=== PATIENT | male | born 1975 | race Caucasian/White ===

== ENCOUNTER 2019-01-16 23:14 | Inpatient (IN) ==
[2019-01-17 00:08] LABS: INR 0.94; PTT 31.2 Seconds (22.3-41.8)
[2019-01-17 00:15] LABS: AGAP 14; ALBUMIN 4.1 g/dL (3.5-5.0); ALKALINE PHOSPHATASE 200 U/L (32-122); BUN 7 mg/dL (8-22); CALCIUM 7.8 mg/dL (8.8-10.2); CHLORIDE 91 mmol/L (98-107); COSMO 261; CREATININE 0.8 mg/dL (0.7-1.2); ESTIMATED GFR > 60; GLUCOSE 130 mg/dL (70-104); GOT 167 U/L (10-34); GPT 55 U/L (10-44); POTASSIUM 3.6 mmol/L (3.5-5.1); SODIUM 130 mmol/L (136-145); TCO2 25 mmol/L (25-35); TOTAL PROTEIN 7.7 g/dL (6.3-8.3)
[2019-01-17 00:23] LABS: BASO# 0.09 X1000 (0.0-0.2); EOS% 2.3 % (0.0-10.0); HEMATOCRIT 41.3 % (42.0-52.0); HEMOGLOBIN 14.3 g/dL (14.0-18.0); IMM GRAN# 0.02 X1000 (0.0-0.04); IMM GRAN% 0.2 % (0.0-0.5); LYMPH# 1.33 X1000 (1.2-3.4); LYMPH% 15.1 % (20.5-51.1); MCH 31.6 PG (27-31); MCHC 34.6 g/dL (33-37); MCV 91.4 FL (81-99); MONO# 0.89 X1000 (0.11-0.59); MONO% 10.1 % (1.7-9.3); NEUT# 6.26 X1000 (1.4-6.5); NEUT% 71.3 % (42.2-75.2); PLT 43 X1000 (130-400); RBC 4.52 XMIL (4.7-6.1); WBC 8.79 X1000 (4.8-10.8)
[2019-01-17] MEDS ORDERED: SODIUM CHLORIDE 0.9% INJ ONE (01:02)
[2019-01-17] MEDS ORDERED: PROTONIX IV ONE (01:02)
[2019-01-17] MEDS ORDERED: NS 1,000 ML IV SCH (01:15)
[2019-01-17 02:26] LABS: UR AMPHETAMINES QUAL NONE DETECTED (NONE DETECT); UR BARBITUATES QUAL NONE DETECTED (NONE DETECT); UR BENZODIAZEPIN QUAL NONE DETECTED (NONE DETECT); UR CANNABINOIDS QUAL NONE DETECTED (NONE DETECT); UR COCAINE QUAL NONE DETECTED (NONE DETECT); UR METHADONE QUAL NONE DETECTED (NONE DETECT); UR METHAMPHETAMINE QUAL NONE DETECTED (NONE DETECT); UR OPIATES QUAL NONE DETECTED (NONE DETECT); UR OXYCODONE QUAL NONE DETECTED (NONE DETECT); UR PCP QUAL NONE DETECTED (NONE DETECT); UR PROPOXYPHENE QUAL NONE DETECTED (NONE DETECT); UR TCA QUAL NONE DETECTED (NONE DETECT)
[2019-01-17 03:44] LABS: OCCULT BLOOD 1 POSITIVE (NEGATIVE)
[2019-01-17] MEDS: LIBRIUM PO ONE ×2 (05:52→05:55)
[2019-01-17] MEDS ORDERED: ROBAXIN PO PRN (07:01)
[2019-01-17] MEDS ORDERED: BENTYL PO PRN (07:01)
[2019-01-17] MEDS ORDERED: SALINE LOCK IV FLUID XX ONE (07:01)
[2019-01-17 07:03] LABS: BASO# 0.03 X1000 (0.0-0.2); BASO% 0.6 % (0.0-0.8); EOS# 0.17 X1000 (0.0-0.7); EOS% 3.5 % (0.0-10.0); HEMATOCRIT 37.9 % (42.0-52.0); HEMOGLOBIN 12.7 g/dL (14.0-18.0); IMM GRAN# 0.01 X1000 (0.0-0.04); IMM GRAN% 0.2 % (0.0-0.5); LYMPH# 1.16 X1000 (1.2-3.4); LYMPH% 23.6 % (20.5-51.1); MCH 30.9 PG (27-31); MCHC 33.5 g/dL (33-37); MCV 92.2 FL (81-99); MONO# 0.46 X1000 (0.11-0.59); MONO% 9.4 % (1.7-9.3); MPV 11.1 FL (7.4-10.4); NEUT# 3.08 X1000 (1.4-6.5); NEUT% 62.7 % (42.2-75.2); RBC 4.11 XMIL (4.7-6.1); RDW 12.8 % (11.5-14.5); WBC 4.91 X1000 (4.8-10.8)
[2019-01-17 07:34] LABS: AGAP 13; ALBUMIN 3.5 g/dL (3.5-5.0); ALKALINE PHOSPHATASE 167 U/L (32-122); BUN 6 mg/dL (8-22); CALCIUM 7.4 mg/dL (8.8-10.2); CHLORIDE 102 mmol/L (98-107); COSMO 275; CREATININE 0.7 mg/dL (0.7-1.2); ESTIMATED GFR > 60; GLUCOSE 90 mg/dL (70-104); GOT 136 U/L (10-34); GPT 46 U/L (10-44); SODIUM 139 mmol/L (136-145); TCO2 24 mmol/L (25-35); TOTAL PROTEIN 6.6 g/dL (6.3-8.3)
[2019-01-17] MEDS ORDERED: PROTONIX 80 MG in NS 80 ML IV SCH (08:00)
[2019-01-17] MEDS ORDERED: LIBRIUM PO SCH (08:00)
[2019-01-17 08:14] LABS: PLT 32 X1000 (130-400)
[2019-01-17] MEDS ORDERED: M.V.I.-12 10 ML, FOLIC ACID 1 MG, MAGNESIUM SULFATE 1 GM, THIAMINE 100 MG in NS 1,000 ML IV ONE (09:00)
[2019-01-17 11:32] LABS: HEMATOCRIT 37.1 % (42.0-52.0); HEMOGLOBIN 12.2 g/dL (14.0-18.0)
--- NOTE | 2019-01-17 11:50 | Diag Imaging Result Doc PS360 ---
EXAM: FLAT/UPRIGHT ABD/1 VIEW CHEST HISTORY: gib, smoker, thrombocytopenia TECHNIQUE: Flat and upright with chest, three views COMPARISON: 09/08/2017 FINDINGS: The lungs are well expanded. No cardiac megaly. No pneumonia. There is a new oblong nodule in the mid right chest. No free air beneath the diaphragm. No bowel obstruction. No organomegaly. No foreign body. IMPRESSION: Lung nodule in the right chest. Follow-up CT may be beneficial. Electronically signed by Kiran Rose 01/17/2019 11:47 AM
[2019-01-17 12:10] LABS: FREE T4 1.14 ng/dL (0.93-1.70); TSH 1.48 uIUmL (0.27-4.20)
[2019-01-17] MEDS: LIBRIUM PO SCH ×2 (15:41→17:14)
[2019-01-17 16:33] LABS: HEMATOCRIT 36.5 % (42.0-52.0); HEMOGLOBIN 11.9 g/dL (14.0-18.0)
[2019-01-17] MEDS: ROCEPHIN 1 GM in NS 50 ML IV SCH (17:05)
--- NOTE | 2019-01-17 18:24 | Diag Imaging Result Doc PS360 ---
US ABDOMEN-COMPLETE - 01/17/2019 INDICATION: cirrhosis r/o hepatoma, assess ascites COMPARISON: 09/06/2017 FINDINGS: The liver is mildly fatty. No liver masses. No biliary dilation. There is mild nonspecific gallbladder wall thickening. No gallstones. There is splenomegaly. The spleen measures 13.8 x 5.2 cm. The pancreas and both kidneys are normal. Aorta, IVC, and main portal vein are patent. Common bile duct measures 3 mm. No ascites. IMPRESSION: Hepatic steatosis. Mild splenomegaly. No change from prior exams. Electronically signed by Adam Snow 01/17/2019 6:22 PM
--- NOTE | 2019-01-17 20:28 | GASTROENTEROLOGY CONSULTATION ---
DATE: 01/17/2019 REASON FOR CONSULTATION: Hematemesis and black stools. HISTORY OF PRESENT ILLNESS: Mr. 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 The patient reports drinking heavily last evening and developing vomiting with a small amount of bright red blood in his emesis. He cannot recall the complete details of his vomiting episode given acute intoxication, although he denies any chest pain, shortness of breath, gross clots in his emesis, abdominal pain, or fevers. He is not on any NSAIDs or blood thinners. He denies any history of similar symptoms in the past. He does endorse abdominal fullness and admits to being noncompliant with lactulose and diuretics. He continues to drink heavily, drinking anywhere between 12 to 20 beers per day. He smokes 1 pack per day as well. No other drug use other than alcohol. He has not ever had an EGD or colonoscopy per his report. He is followed by Dr. Arnett as an outpatient. PAST MEDICAL HISTORY: Decompensated alcohol cirrhosis, ascites, hepatic encephalopathy, thrombocytopenia, prior hospitalizations for alcoholic hepatitis. PAST SURGICAL HISTORY: None. FAMILY HISTORY: Father from complications from alcohol. His uncle also has a history of alcohol cirrhosis. ALLERGIES: To Benadryl. HOME MEDICATIONS: The patient is noncompliant with home medications, not currently taking anything. REVIEW OF SYSTEMS: As per HPI, otherwise 12-point review of systems negative. SOCIAL HISTORY: He drinks anywhere between 12 to 20 beers per day 1 pack per day smoker. No drug use. He lives with a friend currently. PHYSICAL EXAMINATION: Vital signs: Temperature 98.3 degrees, heart rate 72, respiratory rate 18, blood pressure 120/74, O2 saturation 97% on room air. General: The patient is disheveled, well- nourished, well-developed in no acute distress. HEENT: Sclerae anicteric. Moist mucous membranes. Extraocular motor intact. Neck: Supple. No JVD. No lymphadenopathy. Cardiac: Regular rate and rhythm. No murmurs, rubs, or gallops. Lungs: Clear to auscultation bilaterally. Abdomen: Distended, soft. Bowel sounds present. Bulging flanks. Ascites present. Nontender. Extremities: No clubbing, cyanosis, or edema. Neurological: Cranial nerves 2 through 12 grossly intact, moving all extremities symmetrically. Patient is A and O x3. No asterixis. LABORATORY DATA: White count of 4.91, hemoglobin is 12.2 from 14.3 last evening. Platelets are 32,000. INR 0.94. Sodium 139, potassium 4.0, chloride of 102, bicarb 24, BUN 13, BUN of 6, creatinine 0.7, phosphorus of 2.6, total bilirubin 0.6, AST of 136, ALT of 46, alkaline phosphatase 167. B12, folate unremarkable. TSH within normal limits. Urine tox is negative. FOBT is positive. Alcohol level 48. IMAGING: KUB shows a lung nodule in the right chest. Followup CT was recommended. 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 The patient reports having intermittent black stools for the last week. His hemoglobin currently is 12.2 from 14.3 after receiving IV fluids. He denies ongoing bleeding. His vital signs currently are stable. This is unlikely variceal bleed given his hemodynamic stability and essentially normal hemoglobin. He does have significant thrombocytopenia with normal coags from splenomegaly in the setting of cirrhosis. # UGIB: The plan is currently for him to stay on a clear liquid diet for now, keep him on PPI IV b.i.d. He should be on antibiotics for gastrointestinal prophylaxis in the setting of GI bleeding. We will put him on ceftriaxone 1 g q.24. Currently I do not see urgent need to do a diagnostic EGD at this time. # Alcohol abuse: [facility] protocol, thiamin, folate, multivitamin, IV fluids, alcohol cessation counseling. We will continue to monitor for withdrawal # Decompensated ETOH cirrhosis: - Ascites: abdominal ultrasound to assess for ascites if present, diagnostic paracentesis. symptoms. We will likely need to restart him on diuretics based off ultrasound findings. His renal function currently is normal. He is stable on room air. # History of PSE: none currently; holding lactulose # Thrombocytopenia: 2/2 to cirrhosis Thank you for this consult. We will follow with you. Please call with any questions or concerns. [facility]
[2019-01-17 22:53] LABS: HEMATOCRIT 36.5 % (42.0-52.0); HEMOGLOBIN 11.8 g/dL (14.0-18.0)
[2019-01-18] MEDS: PROTONIX 80 MG in NS 80 ML IV SCH ×3 (00:01→15:59)
[2019-01-18] MEDS: LIBRIUM PO SCH ×4 (01:27→18:57)
--- NOTE | 2019-01-18 01:48 | PROVIDER DOCUMENTATION ---
This chart was entered by Chanda Gomes Scribe, acting as scribe for Janell Jules MD. HPI-Abdominal Pain/GI Problem - General Chief Complaint: GI Bleed Stated Complaint: Vomiting blood/ dark stool Time Seen by Provider: 01/17/19 00:57 Source: patient, EMS Allergies/Adverse Reactions: Patient Allergies Allergy/AdvReac Type Severity Reaction Status Date / Time diphenhydramine HCl * Allergy Unknown Unknown Verified 01/16/19 23:22 [From Benadryl] Home Medications: Home Medication List Medication Instructions Recorded Confirmed Last Taken Type NK [No Home Medications] 01/17/19 01/17/19 Unknown History - History of Present Illness-ABD Nature of Presenting Problems: Pt is 43/m presenting to ED via EMS. Pt sts that he was not feeling well and that he was vomiting blood at home. He also reports having dark stools, sometimes black in color. Pt has hx of alcoholism, sts that he has drank 8 beers [employer] Abdominal Pain Onset Location: reports: other (states no pain right now, but that pain is intermittent) Pain Radiation: reports: no radiation Quality of Pain: reports: none Severity in ED: reports: mild Onset/Duration: reports: just prior to arrival Timing: reports: still present Activities at Onset: reports: none Exposure to sick contacts?: No Modifying Factors: improves with: nothing Associated Symptoms: reports: denies symptoms, nausea, vomiting Last BM: unsure Dark Stools Present?: reports: other (sts "dark") Rectal Bleeding: reports: none # of Vomiting Episodes: 2 Emesis Description: reports: other (sts that roomates said that their was blood, but he did not look at it) Bruising or Bleeding Gums?: No Similar Symptoms Previously?: No Recently seen or treated by another doctor?: No Review of Systems - Adult - REVIEW OF SYSTEMS - ADULT Constitutional: reports: no symptoms reported Eyes: reports: no symptoms reported Ears, Nose, Mouth & Throat: reports: no symptoms reported Cardiovascular: reports: no symptoms reported Respiratory: reports: no symptoms reported Gastrointestinal: reports: abdominal pain, nausea, vomiting. denies: diarrhea Musculoskeletal: reports: no symptoms reported Integumentary: reports: no symptoms reported Neurological: reports: no symptoms reported. denies: dizziness/vertigo, headache/migraines Psychiatric: reports: no symptoms reported Endocrine: reports: no symptoms reported Hematologic/Lymphatic: reports: no symptoms reported Past History - Adult - PAST MEDICAL HISTORY-ADULT Review of Records: reports: Old Records Reviewed, Nursing Assessment Review, Med ications Reviewed, Social history reviewed & non-contributory. Major Childhood Illnesses: reports: denies history Cardiovascular: reports: denies history Respiratory: reports: denies history Gastrointestinal: reports: liver disease (cirrhosis) Obstetrical/Gynecological: reports: denies history Genitourinary: reports: denies history Musculoskeletal: reports: denies history Neurological: reports: denies history Psychiatric: reports: anxiety, psychiatric problems, other (disabled due to anxiety) Endocrine/Immune: reports: denies history Other Conditions: reports: denies history - PRIOR SURGERIES/PROCEDURES Surgical/Procedure History: reports: none - IMMUNIZATION STATUS Childhood Immunizations: See Nurse Assessment Flu Vaccine: See Nurse Assessment - FAMILY HISTORY Family History: reviewed, not pertinent - SOCIAL HISTORY Smoking: cigarettes, greater than 1 pack/day Substance Use: alcohol Alcohol Use Frequency: every day Number of drinks per typical drinking period:: 5-10 drinks Living Situation: other Physical Exam-General - PHYSICAL EXAM-ADULT Initial Vital Signs Reviewed: Yes - CONSTITUTIONAL General Appearance: alert, no apparent distress - EYES Eyes: PERRL/EOMI - HEAD, EARS, NOSE, MOUTH & THROAT HENMT: normocephalic/atraumatic, other (SLIGHTLY DRY MUCOUS MEMBRANE) - NECK Neck: non-tender, full range of motion, supple, normal inspection - RESPIRATORY Respiratory: chest non-tender, lungs clear, normal breath sounds - CARDIOVASCULAR Cardiovascular: regular rate, rhythm - GASTROINTESTINAL (ABDOMEN) Abdominal Exam: normal bowel sounds, non tender, soft - GENITOURINARY Rectal Exam: normal exam, normal rectal tone, other ([employer] Chanda Gomes) - MUSCULOSKELETAL Extremity: normal range of motion, non-tender, normal gait, normal inspection - SKIN Integumentary: normal color, warm/dry - NEUROLOGIC Neurologic: grossly normal Progress - PLAN OF CARE/RESULTS Progress/Plan/Lab Results: Vital Signs - 8 hr 01/16/19 23:14 01/16/19 23:56 Temperature 98.3 F Pulse Rate 90 87 Respiratory Rate 17 14 Blood Pressure 127/92 128/85 O2 Sat by Pulse Oximetry 98 95 Laboratory Results - last 24 hr 01/16/19 01/16/19 01/16/19 23:10 23:10 23:10 WBC 8.79 RBC 4.52 L Hgb 14.3 Hct 41.3 L MCV 91.4 MCH 31.6 H MCHC 34.6 RDW Std Deviation 13.0 Plt Count 43 L MPV 11.0 H Immature Gran % (Auto) 0.2 Neut % (Auto) 71.3 Lymph % (Auto) 15.1 L Boundary % (Auto) 10.1 H Eos % (Auto) 2.3 Baso % (Auto) 1.0 H Immature Gran # (Auto) 0.02 Neut # (Auto) 6.26 Lymph # (Auto) 1.33 Boundary # (Auto) 0.89 H Eos # (Auto) 0.20 Baso # (Auto) 0.09 PT 13.0 INR 0.94 PTT (Actin FS) 31.2 Sodium 130 L Potassium 3.6 Chloride 91 L Carbon Dioxide 25 Anion Gap 14 BUN 7 L Creatinine 0.8 Estimated GFR/1.73 m2 > 60 BUN/Creatinine Ratio 9 Glucose 130 H Calculated Osmolality 261 Calcium 7.8 L Total Bilirubin 0.50 AST 167 H ALT 55 H Alkaline Phosphatase 200 H Total Protein 7.7 Albumin 4.1 Globulin 4.0 Albumin/Globulin Ratio 1.0 Plasma/Serum Ethyl Alc Blood Type Antibody Screen 01/16/19 01/16/19 23:10 23:35 WBC RBC Hgb Hct MCV MCH MCHC RDW Std Deviation Plt Count MPV Immature Gran % (Auto) Neut % (Auto) Lymph % (Auto) Boundary % (Auto) Eos % (Auto) Baso % (Auto) Immature Gran # (Auto) Neut # (Auto) Lymph # (Auto) Boundary # (Auto) Eos # (Auto) Baso # (Auto) PT INR PTT (Actin FS) Sodium Potassium Chloride Carbon Dioxide Anion Gap BUN Creatinine Estimated GFR/1.73 m2 BUN/Creatinine Ratio Glucose Calculated Osmolality Calcium Total Bilirubin AST ALT Alkaline Phosphatase Total Protein Albumin Globulin Albumin/Globulin Ratio Plasma/Serum Ethyl Alc 381 H Blood Type O POSITIVE Antibody Screen NEGATIVE Orders Category Date Time Status Cardiac Monitoring DIRECTED Care 01/17/19 01:02 Active ALCOHOL BLOOD Stat Lab 01/16/19 23:10 Completed CBC WITH ELECTRONIC DIFF [HEME] Stat Lab 01/16/19 23:10 Completed COMPREHENSIVE METABOLIC PANEL [CHEM] Stat Lab 01/16/19 23:10 Completed OCCULT BLOOD SCREEN STOOL PL Stat Lab 01/16/19 23:24 Uncollected PROTIME WITH INR [COAG] Stat Lab 01/16/19 23:10 Completed PTT [COAG] Stat Lab 01/16/19 23:10 Completed TYPE & SCREEN [BBK] Stat Lab 01/16/19 23:35 Completed TYPE & SCREEN [BBK] Stat Lab 01/17/19 01:02 Uncollected 0.9% Sodium Chloride Inj [Ns] 1,000 ml Med 01/17/19 01:15 Active IV 250 mls/hr Pantoprazole [Protonix] Med 01/17/19 01:02 Discontinued 40 mg IV NOW ONE Sodium Chloride 0.9% Med 01/17/19 01:02 Discontinued 10 ml INJ NOW ONE GI Bleed (possible) Stat Oth 01/16/19 23:23 Ordered Result Diagrams: 01/17/19 11:15 01/17/19 06:11 - CONSULTS/PCP/HOSPITALIST Notification #1 *Consult/PCP/Hospitalist*: Dr. Phyllis Esqueda Discussed: 01:45 Consult Disposition: other (try to admit to [facility], if no bed admit to [facility].) #2 Consult: Dr. Salomon Esqueda Discussed: 01:55 Consult Disposition: other (initially accept the patient but we got call from [facility] that they don't have [facility] bed and he can't accept the patient. will call Dr. Ferguson) #3 Consult: Dr. Phyllis Esqueda Discussed: 02:10 Consult Disposition: Admit (Accepted.) Departure - Departure Date of Disposition Decision: 01/17/19 Time of Disposition Decision: 02:10 DIAGNOSIS: Upper GI bleed, Thrombocytopenia Alcohol intoxication Qualifiers: Complication of substance-induced condition: uncomplicated Qualified Code(s): F10.920 - Alcohol use, unspecified with intoxication, uncomplicated Liver cirrhosis Qualifiers: Hepatic cirrhosis type: alcoholic cirrhosis Ascites presence: without ascites Qualified Code(s): K70.30 - Alcoholic cirrhosis of liver without ascites Disposition: ADMITTED INPATIENT 09 Certified Medical Emergency: Emergent Condition: Stable - Critical Care Note This patient required my direct & personal management of CC.: No Attestation - Physician/ ZAHIDA Attestation Patient care was provided by Advanced Practice Provider:: No The physician spent face to face time with patient:: Yes Advanced Practice Provider documentation review:: Supervising physician onsite and consulted in the evaluation and care of this patient. The physician did have a face to face encounter with the patient. This chart was documented by the indicated scribe, (Chanda Gomes, Sne[place]) and accurately reflects the services I performed and decisions made by me, Janell Bowman MD, as attested by the provider's signature.
--- NOTE | 2019-01-18 01:58 | HISTORY AND PHYSICAL ---
CHIEF COMPLAINT: Vomiting blood and dark stool. HISTORY OF PRESENT ILLNESS: The patient is an unfortunate 43-year-old male who has a history of alcoholic cirrhosis. He presented to the hospital not feeling well. States that he has been vomiting at home. Reports having dark stools and sometimes black in color. Denies any bright red rectal bleeding. ALLERGIES: Benadryl. MEDICATIONS: Lasix 40, spironolactone 25. He had been on Xifaxan in the back in the past, but he is not currently taking this. REVIEW OF SYSTEMS: As noted above. Patient notes that he has had some nausea, vomiting, diarrhea. He has had black and dark, tarry stools. Feels as though he has had some blood in his emesis, but not every time. Denies any chest pain, palpitations. Denies fevers or chills. Denies dysuria, urinary frequency, urgency, hesitancy, polyuria or polydipsia. Denies skin rashes, weight loss or weight gain recently, but also notes he does not check his weight on any regular basis. PAST MEDICAL HISTORY: History of cirrhosis secondary to chronic alcoholism. Psychiatric problems. He is on disability due to his anxiety. FAMILY HISTORY: Noncontributory. SOCIAL HISTORY: The patient continues to smoke a pack a day. He continues to drink every day at least 5 to 10 drinks. PHYSICAL EXAMINATION: VITAL SIGNS: Temperature 98 degrees, pulse 90, respiratory rate 18, BP 127/92, saturation 95% on room air. GENERAL: Patient is awake, alert. He is currently in no respiratory distress. He is very pleasant to talk with. HEENT: Normocephalic. NECK: Supple. CARDIOVASCULAR: Regular rate. No murmurs. CHEST: Clear and nonlabored. Nondistended. EXTREMITIES: Moves all extremities. NEUROLOGIC: No focal neurological changes. ASSESSMENT: 1. Cirrhosis. 2. Chronic alcoholism. 3. Thrombocytopenia. 4. Heme-positive stool. PLAN: Given the fact the patient has heme-positive stool and significant thrombocytopenia with a platelet count of 30,000, we will transfer him to [facility]. We will consult GI. Certainly we will hold endoscopy at this point as his hemoglobin and hematocrit are stable, but he needs to be there in case things change so that he can be treated more aggressively. If his bleeding increases, then he will need to have a transfusion of platelets. Discussed with patient the importance of stopping alcohol. Should consider medication assisted therapy, MAT, on discharge with naltrexone. Currently, he is on Librium at 25 three times a day. Certainly expect that he will need more than this, but he is refusing to take any more. We will place him on a Protonix drip and follow. cc: Matt Ferguson MD
[2019-01-18 06:50] LABS: BASO# 0.05 X1000 (0.0-0.2); BASO% 1.3 % (0.0-0.8); EOS# 0.16 X1000 (0.0-0.7); EOS% 4.3 % (0.0-10.0); HEMATOCRIT 36.2 % (42.0-52.0); HEMOGLOBIN 11.7 g/dL (14.0-18.0); LYMPH# 0.89 X1000 (1.2-3.4); MCH 31.1 PG (27-31); MCHC 32.3 g/dL (33-37); MCV 96.3 FL (81-99); MONO# 0.42 X1000 (0.11-0.59); MONO% 11.3 % (1.7-9.3); NEUT# 2.19 X1000 (1.4-6.5); NEUT% 59.1 % (42.2-75.2); RBC 3.76 XMIL (4.7-6.1); RDW 13.3 % (11.5-14.5); WBC 3.71 X1000 (4.8-10.8)
[2019-01-18 06:51] LABS: PLT 29 X1000 (130-400)
[2019-01-18 07:03] LABS: AGAP 9; ALB/GLOB RATIO 1.2; ALBUMIN 3.1 g/dL (3.5-5.0); ALKALINE PHOSPHATASE 138 U/L (32-122); BUN 4 mg/dL (8-22); CALCIUM 8.2 mg/dL (8.8-10.2); CHLORIDE 109 mmol/L (98-107); COSMO 277; CREATININE 0.7 mg/dL (0.7-1.2); ESTIMATED GFR > 60; GLUCOSE 83 mg/dL (70-104); GOT 117 U/L (10-34); GPT 40 U/L (10-44); POTASSIUM 3.8 mmol/L (3.5-5.1); SODIUM 141 mmol/L (136-145); TCO2 23 mmol/L (25-35); TOTAL BILIRUBIN 0.79 mg/dL (0.20-1.00); TOTAL PROTEIN 5.6 g/dL (6.3-8.3)
[2019-01-18] MEDS: M.V.I.-12 10 ML, FOLIC ACID 1 MG, MAGNESIUM SULFATE 1 GM, THIAMINE 100 MG in NS 1,000 ML IV SCH (10:45)
--- NOTE | 2019-01-18 13:51 | PROGRESS NOTE ---
DATE: 01/18/2019 SUBJECTIVE: The patient is lying comfortably in bed, he is not complaining of chest pain or shortness of breath, no belly pain, his platelet count dropped from 32 to 29. WBC 3.7, hemoglobin 11.7, hemoglobin is likely the same compared with yesterday. We will monitor. OBJECTIVE: Vital Signs: Temperature 98.8 degrees, pulse 78, respiratory rate 16, blood pressure 111/60, oxygen saturation 98 on room air. HEENT: Head normocephalic. No trauma. PERRLA. Neck: Supple. No JVD. No masses. Central trachea. Chest: Clear to auscultation. No wheezing. No rales. Abdomen: Soft. Mild discomfort at the level of the right upper quadrant, mild distention, positive bowel sounds. Extremities: No edema. No clubbing. No cyanosis. Neurological: The patient is alert and oriented x3. No focal deficits. LABORATORY: WBC 3.7, hemoglobin 11.7, hematocrit 36.2, platelets 29,000, sodium 141, potassium 3.8, chloride 109, bicarbonate 23, BUN 4, creatinine 0.7, glucose 83, calcium 8.2, AST 117, ALT 48, alkaline phosphatase 138, albumin 3.1. ASSESSMENT AND PLAN: 1. Gastrointestinal bleed, we have a positive occult blood in the stool, Gastroenterology Department has evaluated this patient. We will continue with PPI and the rest of the medications, hemoglobin looks stable, we will follow recommendation of Gastroenterology Department. This patient has a strong history of alcohol abuse, ultrasound showed hepatic steatosis and mild splenomegaly. 2. Chronic alcoholism, as above, continue with multivitamin and banana bag. 3. Thrombocytopenia has been decreasing slowly from 43 a couple days ago to 32 yesterday and today is 29. We will monitor and we will transfuse as needed. 4. Possible liver cirrhosis, complicated with ascites and hepatic encephalopathy. This patient came in intoxicated, alcohol level was high. We will monitor. Gastroenterology Department following this patient. Ultrasound showed hepatic steatosis. cc: Reginald Crowley MD
[2019-01-18] MEDS ORDERED: BENTYL PO PRN (14:00)
[2019-01-18] MEDS: ROCEPHIN 1 GM in NS 50 ML IV SCH (15:59)
[2019-01-18] MEDS: ATARAX PO PRN (20:49)
--- NOTE | 2019-01-18 21:15 | GASTROENTEROLOGY PROGRESS NOTE ---
DATE: 01/18/2019 PRIMARY SHIP WORKER: Dr. Arnett. SUBJECTIVE: The patient is resting in bed. He denies any new complaints. Denies any nausea or vomiting. He denies any vomiting blood. He is eating better. He has moved his bowels once. He denies any fevers, rigors, or chills. OBJECTIVE: Vital signs: Temperature 98.6, pulse of 82, respiratory rate 16, blood pressure 129/72, saturating 100% on room air. Body weight of 137 pounds 4 ounces. BMI 21.5 kg. General Appearance: Thinly built, lying in bed, in no acute distress. HEENT: Pale conjunctivae. No icterus. Pupils equal, reactive to light. Neck: Supple. Abdomen: Protuberant, soft. Question of ascites. No rebound or guarding. Extremities: No cyanosis or clubbing. Neurologic: Alert, awake, oriented. LABORATORIES: Hemoglobin is 11.7, hematocrit is 36.2, white count of 3.71, platelet count of 29,000. Sodium of 141, potassium 3.8, chloride 109, bicarb of 23, anion gap of 9, BUN of 4, creatinine 0.7, glucose of 83. Calcium is 8.2. Total bilirubin is 0.7, AST 117, ALT 40, alkaline phosphatase 130, total protein is 5.6, albumin of 3.1. Stool or occult blood was positive. B12 of 940. Plasma alcohol level on admission of 381. IMAGING STUDIES: Ultrasound of the abdomen showed hepatic steatosis, mild splenomegaly, spleen size measuring 13.8 x 5.2 cm. Abdominal x-ray showed lung nodule, right lung. IMPRESSION AND PLAN: 1. Alcoholism complicated by liver cirrhosis. In this regard, we will continue to watch the patient's liver enzymes. We will avoid any hepatotoxic drugs. The patient is counseled to quit drinking completely. We will continue banana bag, multivitamin, thiamine, folate for now. 2. Gastrointestinal bleed. The patient did complain of vomiting blood before admission. Since being in the hospital, he has not vomited. He is eating and tolerating food well. His hemoglobin and hematocrit are stable. We will continue to watch. We will keep him on multivitamin once daily. We will also continue Protonix drip for now and then will change to Protonix b.i.d. after the drip is finished. 3. Watch for withdrawal. He is on Librium 50 mg q.8 hours. 4. We will change the dose of Bentyl to 10 mg b.i.d. as needed. He does have hepatic steatosis and splenomegaly on ultrasound, likely secondary to alcoholic liver disease. 5. We will continue the patient on a clear liquid diet for now and advance as tolerated. 6. Gastrointestinal prophylaxis. PPIs. 7. Thrombocytopenia. Continue to watch for now and transfuse as needed. 8. Above plan of care discussed with the patient and all questions answered. Please call us with further questions. cc: MD Zak Dodson MD MTDD
[2019-01-19] MEDS: LIBRIUM PO SCH ×3 (03:33→18:50)
[2019-01-19] MEDS: PROTONIX 80 MG in NS 80 ML IV SCH ×3 (03:33→21:04)
[2019-01-19] MEDS: ATARAX PO PRN ×3 (05:35→21:04)
[2019-01-19 08:17] LABS: BASO# 0.04 X1000 (0.0-0.2); BASO% 1.1 % (0.0-0.8); EOS# 0.17 X1000 (0.0-0.7); EOS% 4.6 % (0.0-10.0); HEMATOCRIT 37.3 % (42.0-52.0); HEMOGLOBIN 11.7 g/dL (14.0-18.0); LYMPH% 18.9 % (20.5-51.1); MCH 30.7 PG (27-31); MCHC 31.4 g/dL (33-37); MCV 97.9 FL (81-99); MONO# 0.39 X1000 (0.11-0.59); MONO% 10.5 % (1.7-9.3); MPV 10.7 FL (7.4-10.4); NEUT# 2.41 X1000 (1.4-6.5); NEUT% 64.9 % (42.2-75.2); PLT 20 X1000 (130-400); RBC 3.81 XMIL (4.7-6.1); RDW 13.4 % (11.5-14.5); WBC 3.71 X1000 (4.8-10.8)
[2019-01-19 08:33] LABS: AGAP 9; ALB/GLOB RATIO 1.1; ALBUMIN 3.2 g/dL (3.5-5.0); ALKALINE PHOSPHATASE 130 U/L (32-122); BUN 3 mg/dL (8-22); CALCIUM 8.3 mg/dL (8.8-10.2); CHLORIDE 106 mmol/L (98-107); COSMO 278; CREATININE 0.9 mg/dL (0.7-1.2); ESTIMATED GFR > 60; GLUCOSE 101 mg/dL (70-104); GOT 118 U/L (10-34); GPT 40 U/L (10-44); PHOSPHORUS 3.2 mg/dL (2.7-4.5); POTASSIUM 3.7 mmol/L (3.5-5.1); SODIUM 141 mmol/L (136-145); TCO2 26 mmol/L (25-35); TOTAL BILIRUBIN 0.67 mg/dL (0.20-1.00); TOTAL PROTEIN 6.2 g/dL (6.3-8.3)
[2019-01-19 08:42] LABS: EOS 8 % (1-10); LYMPHS 18 % (21-51); MONO 10 % (1-9); SEGS 64 % (42-75)
[2019-01-19] MEDS: M.V.I.-12 10 ML, FOLIC ACID 1 MG, MAGNESIUM SULFATE 1 GM, THIAMINE 100 MG in NS 1,000 ML IV SCH (09:48)
--- NOTE | 2019-01-19 14:42 | PROGRESS NOTE ---
DATE: 01/19/2019 SUBJECTIVE: This patient is resting comfortably in bed. 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 I will stop the fluids and I will put him on thiamine and folic acid and multivitamins. I had an extremely large conversation with this patient and some friends at the bedside about alcohol abuse and liver cirrhosis. This patient is thrombocytopenic. Platelet count is 20,000. I will repeat the platelets today at 4 p.m. If this is less than 20,000, I will transfuse him. Otherwise, I will recheck the platelet count in the morning. No signs of bleeding at this moment. OBJECTIVE: Vital Signs: Temperature 98.7 degrees, pulse 60, respiratory rate 18, blood pressure 122/80, oxygen saturation 100% on room air. HEENT: Head normocephalic. No trauma. PERRLA. Neck: Supple. No JVD. No masses. Central trachea. Chest: Clear to auscultation. No wheezing. No rales. Abdomen: Soft. It is slightly distended. Positive bowel sounds. Not painful to palpation. Extremities: No edema. No clubbing. No cyanosis. Neurological Examination: The patient is alert and oriented x3. No focal deficits. Laboratory: WBC 3.7, hemoglobin 11.7, hematocrit 37.3, platelets 20,000. Sodium 141, potassium 3.7, chloride 16, bicarbonate 26, BUN 3, creatinine 0.9, glucose 101, calcium 8.3. AST 118, ALT 40, alkaline phosphatase 130, albumin 3.2. ASSESSMENT AND PLAN: 1. Gastrointestinal bleed. He has a positive Hemoccult in the stool. Gastroenterology department evaluated this patient. We will continue with proton pump inhibitors. I will recheck the platelet count today in the afternoon to see if he needs to be transfused. This patient has a strong history of alcohol abuse. Ultrasound showed hepatic steatosis and mild splenomegaly. 2. Thrombocytopenia, severe. Platelet count today is 20,000. I will transfuse if the platelet count drops below 20,000. 3. Chronic alcoholism. Continue with multivitamin, folic acid, and thiamine. This patient has been highly advised against alcohol abuse. I will continue with daily cessation education. 4. Likely liver cirrhosis due to alcohol abuse, complicated with ascites and hepatic encephalopathy. This is getting better. We will continue with the same management. cc: Reginald Crowley MD
[2019-01-19] MEDS: LASIX PO SCH (15:08)
[2019-01-19] MEDS: LACTULOSE PO SCH ×2 (15:08→21:03)
[2019-01-19] MEDS: ALDACTONE PO SCH (15:08)
[2019-01-19] MEDS: ROCEPHIN 1 GM in NS 50 ML IV SCH (15:08)
[2019-01-19 16:00] LABS: MPV 11.2 FL (7.4-10.4)
--- NOTE | 2019-01-19 17:14 | GASTROENTEROLOGY PROGRESS NOTE ---
DATE: 01/19/2019 PRIMARY CARE PHYSICIAN: Dr. Cuevas. SUBJECTIVE: Patient is resting in bed. He is currently sleepy. He denies any nausea, vomiting, vomiting blood. According to the nursing records he has been a little anxious today. He could be going to alcohol withdrawal. OBJECTIVE: Vital signs: Temperature 98.7 degrees, pulse of 60, respiratory rate 18, blood pressure 122/80, saturating 100% on room air. General Appearance: Thinly built, lying in bed, in no acute distress. HEENT: Mild pallor. No icterus. Pupils equal, reactive to light. Neck: Supple. Abdomen: Soft, nontender. No guarding or rebound. Extremities: No cyanosis, clubbing. Neurologic: He is currently sleepy. Was able to wake up on command. LABS: Hemoglobin and hematocrit are 11.7 and 37.3, white count 3.71, platelet count of 20,000. Sodium 141, potassium 3.7, chloride 106, bicarb 26, anion gap 9, BUN of 3, creatinine 0.9, glucose of 101, calcium is 8.3, phosphorus 3.2, magnesium 2.0, total bilirubin is 0.67, AST 118, ALT 40, alkaline phosphatase 130, total protein 6.2, albumin of 3.2. Stool for Hemoccult was positive. IMPRESSION AND PLAN: 1. Positive Hemoccult. He did have a history of vomiting blood before admission but since being in the hospital, his hematocrit is stable and he is not vomiting blood. He is on a Protonix drip. He has thrombocytopenia, likely secondary to alcoholic hepatitis and possible cirrhosis. Since there are no signs of any active bleeding or any thrombocytopenia, we will hold off on any kind of aggressive intervention. We will continue watch hemoglobin and hematocrit for now. 2. Thrombocytopenia. Continue to watch for now and transfuse platelets if platelet count goes below 20,000. 3. Alcoholism. Patient will continue multivitamin, folic acid, and thiamine. 4. Watch for withdrawal. 5. Gastrointestinal prophylaxis. PPIs. 6. The above plan was discussed with the patient and nursing staff and all questions answered. Please call us with any further questions. cc: MD Reginald Dodson MD Dr. Yousuf
[2019-01-20] MEDS: LIBRIUM PO SCH ×2 (02:48→11:24)
[2019-01-20] MEDS: ATARAX PO PRN (06:40)
[2019-01-20] MEDS: PROTONIX 80 MG in NS 80 ML IV SCH ×2 (06:40→18:21)
[2019-01-20] MEDS ORDERED: PROTONIX IV SCH ×2 (08:00→18:53)
[2019-01-20 08:14] LABS: BASO# 0.06 X1000 (0.0-0.2); BASO% 1.2 % (0.0-0.8); EOS# 0.18 X1000 (0.0-0.7); EOS% 3.6 % (0.0-10.0); HEMATOCRIT 41.8 % (42.0-52.0); HEMOGLOBIN 13.3 g/dL (14.0-18.0); LYMPH# 1.12 X1000 (1.2-3.4); LYMPH% 22.1 % (20.5-51.1); MCH 30.9 PG (27-31); MCHC 31.8 g/dL (33-37); MONO# 0.54 X1000 (0.11-0.59); MONO% 10.7 % (1.7-9.3); MPV 11.8 FL (7.4-10.4); NEUT# 3.16 X1000 (1.4-6.5); NEUT% 62.4 % (42.2-75.2); PLT 30 X1000 (130-400); RBC 4.31 XMIL (4.7-6.1); RDW 13.6 % (11.5-14.5); WBC 5.06 X1000 (4.8-10.8)
[2019-01-20] MEDS: CENTRUM TABLET PO SCH (08:35)
[2019-01-20] MEDS: LACTULOSE PO SCH ×2 (08:35→22:36)
[2019-01-20] MEDS: FOLIC ACID PO SCH (08:35)
[2019-01-20] MEDS: VITAMIN B-1 PO SCH (08:35)
[2019-01-20] MEDS: LASIX PO SCH (08:35)
[2019-01-20] MEDS: ALDACTONE PO SCH (08:35)
[2019-01-20 08:41] LABS: AGAP 13; ALB/GLOB RATIO 1.1; ALBUMIN 3.9 g/dL (3.5-5.0); ALKALINE PHOSPHATASE 146 U/L (32-122); BUN 5 mg/dL (8-22); CALCIUM 9.1 mg/dL (8.8-10.2); CHLORIDE 102 mmol/L (98-107); COSMO 278; ESTIMATED GFR > 60; GLUCOSE 89 mg/dL (70-104); GOT 154 U/L (10-34); GPT 52 U/L (10-44); POTASSIUM 3.4 mmol/L (3.5-5.1); SODIUM 141 mmol/L (136-145); TCO2 26 mmol/L (25-35); TOTAL BILIRUBIN 0.66 mg/dL (0.20-1.00); TOTAL PROTEIN 7.3 g/dL (6.3-8.3)
[2019-01-20] MEDS ORDERED: KLOR-CON PO ONE (09:42)
--- NOTE | 2019-01-20 13:21 | PROGRESS NOTE ---
DATE: 01/20/2019 SUBJECTIVE: This patient feels better. The platelet count increased from 22,000 to 30,000. Today Gastroenterology Department will re-evaluate this patient to decide if this patient will have an endoscopy or not. I will continue checking the platelet count on a daily basis. OBJECTIVE: Vitals: Temperature 97.7 degrees, pulse 72, respiratory rate 19, blood pressure 111/82, oxygen saturation 100% on room air. HEENT: Head normocephalic. No trauma. PERRLA. Neck: Supple. No JVD. No masses. Central trachea. Chest: Clear to auscultation. No wheezing. No rales. Abdomen: Soft, slightly distended, positive bowel sounds. Not painful to palpation. Extremities: No edema. No clubbing. No cyanosis. Neurological: The patient is alert and oriented x3. No focal deficits. LABORATORY: WBC 5, hemoglobin 13.3, hematocrit 41.8, platelets 30,000. Sodium 141, potassium 3.4, chloride 102, bicarbonate 26, BUN 5, creatinine 1. Glucose 89, calcium 9.1. AST 154, AST 52, alkaline phosphatase 146. ASSESSMENT AND PLAN: 1. Gastrointestinal bleed, he has a positive Hemoccult in the stool, Gastroenterology Department will re-evaluate this patient to see if he needs an endoscopy or not. We will continue with proton pump inhibitors, hemoglobin seems to be stable. 2. Thrombocytopenia. The platelet count increased from 20 to 22,000 and today 30,000. No platelet transfusions so far. We will monitor. 3. Chronic alcoholism. Continue with multivitamin, folic acid, and thiamine. The patient has been highly advised against alcohol abuse. I will continue with daily cessation education. 4. Tobacco abuse. This patient has been advised against tobacco use. I will continue with daily cessation education. 5. Liver cirrhosis due to alcohol abuse complicated with ascites and hepatic encephalopathy, this is getting better. He is completely alert and oriented x3. cc: Reginald Crowley MD
[2019-01-20] MEDS: ROCEPHIN 1 GM in NS 50 ML IV SCH (15:51)
--- NOTE | 2019-01-20 19:48 | GASTROENTEROLOGY PROGRESS NOTE ---
DATE: 01/20/2019 SUBJECTIVE: Mr. Darling is resting comfortably. He reports no abdominal pain, but he complains of swelling of his abdomen. He tells me that he was about to leave the hospital and was found by the nurse and was brought to the hospital to receive his medication. He has not had any melena or bright red blood per rectum. He is tolerating his diet well. OBJECTIVE: Vital Signs: Temperature 97.6 degrees, pulse 72 per minute, breathing at 20, blood pressure is 114/73. Chest: Clear to auscultate. Cardiovascular: Heart sounds audible. No murmur. Abdomen: Slightly distended but tympanitic. Soft, nontender. Bowel sounds are audible. LABORATORIES: Hemoglobin today was 13.3 with hematocrit 41.8, MCV 97.0 with platelets of 30,000. Sodium 141, potassium 3.4, chloride 102, bicarb 26, BUN is 5, creatinine 1.0. AST was 154, ALT 52 with alkaline phosphatase 146 and total bilirubin was 0.66. On admission his PT was 13, INR 0.94, PTT was 31.2. IMPRESSION: 1. Upper gastrointestinal bleed. His hemoglobin and hematocrit did not drop much suggestive of mild bleed. He had nausea and vomiting prior to this hematemesis. Most likely, he may have had a small Celeste-Caballero tear. His hemoglobin and hematocrit is stable, and he is currently on proton pump inhibitor. I will switch his PPI from IV to p.o. He will need EGD to screen for esophageal varices. He may need esophageal variceal banding. I have given him option about getting discharged, and that can be done as an outpatient; however, he insists that he may want to have it done while he is here. He will be scheduled for Sunday. 2. 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 He is not actively bleeding despite being thrombocytopenic. At this point, we will continue to watch. 3. Alcohol abuse. He has started drinking again, and when he was brought in he was inebriated. At this point, he is currently on Librium, and he is on DT precautions. I have discussed with him to have complete abstinence. He understands and tells me that he will try. Currently he is on thiamine and folic acid. We will continue to observe him in the hospital and if he is still here on Sunday, we will proceed with EGD for screening for esophageal varices and band if needed. cc: Zak Arnett MD
[2019-01-21] MEDS ORDERED: PRILOSEC PO SCH (07:00)
[2019-01-21 08:04] LABS: BASO# 0.06 X1000 (0.0-0.2); EOS# 0.23 X1000 (0.0-0.7); EOS% 3.8 % (0.0-10.0); HEMATOCRIT 41.8 % (42.0-52.0); HEMOGLOBIN 13.4 g/dL (14.0-18.0); LYMPH# 1.21 X1000 (1.2-3.4); LYMPH% 20.2 % (20.5-51.1); MCH 31.2 PG (27-31); MCHC 32.1 g/dL (33-37); MCV 97.2 FL (81-99); MONO# 0.94 X1000 (0.11-0.59); MONO% 15.7 % (1.7-9.3); MPV 12.1 FL (7.4-10.4); NEUT# 3.55 X1000 (1.4-6.5); NEUT% 59.3 % (42.2-75.2); RDW 13.8 % (11.5-14.5); WBC 5.99 X1000 (4.8-10.8)
[2019-01-21 08:05] LABS: PLT 38 X1000 (130-400)
[2019-01-21 08:21] LABS: AGAP 14; ALB/GLOB RATIO 1.1; ALBUMIN 4.1 g/dL (3.5-5.0); ALKALINE PHOSPHATASE 147 U/L (32-122); BUN 8 mg/dL (8-22); CALCIUM 8.9 mg/dL (8.8-10.2); CHLORIDE 99 mmol/L (98-107); COSMO 276; CREATININE 1.1 mg/dL (0.7-1.2); ESTIMATED GFR > 60; GLUCOSE 66 mg/dL (70-104); GOT 160 U/L (10-34); GPT 58 U/L (10-44); POTASSIUM 3.6 mmol/L (3.5-5.1); SODIUM 140 mmol/L (136-145); TCO2 27 mmol/L (25-35); TOTAL BILIRUBIN 0.53 mg/dL (0.20-1.00); TOTAL PROTEIN 7.7 g/dL (6.3-8.3)
[2019-01-21] MEDS: FOLIC ACID PO SCH (08:30)
[2019-01-21] MEDS: CENTRUM TABLET PO SCH (08:30)
[2019-01-21] MEDS: ALDACTONE PO SCH (08:30)
[2019-01-21] MEDS: LASIX PO SCH (08:30)
[2019-01-21] MEDS: LACTULOSE PO SCH (08:30)
[2019-01-21] MEDS: VITAMIN B-1 PO SCH (08:30)
[2019-01-21 12:19] VITALS: BP 109/72
[2019-01-21] MEDS: ROCEPHIN 1 GM in NS 50 ML IV SCH (14:55)
--- NOTE | 2019-01-22 15:32 | DISCHARGE SUMMARY ---
ADMISSION DATE: 01/17/2019 DISCHARGE DATE: 01/21/2019 DISCHARGE DIAGNOSES: 1. Gastrointestinal bleeding, resolved. 2. Alcohol intoxication. 3. Chronic alcoholism. 4. Thrombocytopenia secondary to alcohol abuse. 5. 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 CONSULTATIONS: Dr. Chetan keating from GI. PROCEDURES: 1. Abdominal x-ray showed lung nodule in the right chest. 2. Abdominal ultrasound showed hepatic steatosis with mild splenomegaly but no change from prior exams. HOSPITAL COURSE: Patient is a 43-year-old male with known medical history of chronic alcohol abuse. He presented to the hospital not be feeling well. He was vomiting home. He reported having some black stools, denied any bright rectal bleeding. Upon ER evaluation, he was found to have alcohol intoxication with elevated liver function test. The patient was evaluated by GI, and considering his current clinical situation, GI preferred to continue monitoring this patient and not to pursue any urgent need to do diagnosed EGD. The patient has so far monitored and his hemoglobin has been stable so far. Also, thrombocytopenia that was noticed at admission 29 was getting slightly better to 38. No signs of bleeding. We continued with Protonix IV. At this point, Dr. Arnett who resumed care for this patient on Sunday, mentioned that this patient can have endoscopy as an outpatient or inpatient. Patient prefers to go home and get it done as an outpatient. The patient has been cleared by GI. The patient is good to go. DISCHARGE PHYSICAL EXAMINATION: Vital signs: Temperature 97 degrees, heart rate 65, respiratory rate 18, blood pressure 109/72, O2 saturation 100% on room air. General: This is a chronically ill-appearing and disheveled, 43-year-old male, lying in bed, in no acute distress. HEENT: Head is normocephalic, atraumatic. Mucous membranes dry. Icteric conjunctivae. Neck: No JVD noted. No carotid bruits. No lymphadenopathy. No thyromegaly. Cardiovascular: S1, S2 heard. No murmurs, gallops, or rubs. Regular rate and rhythm. Respiratory: Clear bilaterally to auscultation. No work of breathing or using accessory muscles. Abdomen: Soft, nontender to palpation. Bowel sounds present. No organomegaly. Extremities: No clubbing, cyanosis, or edema. Peripheral pulses present in both legs. Neurological: Patient alert and oriented x3. DISCHARGE DISPOSITION: Home to self-care. FOLLOWUP: Follow up with Dr. Arnett. He is to call the office to get an appointment for an EGD. MEDICATIONS: 1. Spironolactone 25 mg 1 tablet p.o. daily. 2. Centrum tablets 1 tablet p.o. daily. 3. Lactulose 30 mL p.o. twice daily. 4. Lasix 40 mg 1 tablet p.o. daily. 5. Librium tapering doses. 6. Omeprazole 20 mg 2 tablets p.o. daily. 7. Thiamine 1 tablet p.o. daily 100 mg. 8. Folic acid 1 tablet p.o. daily. 9. Bentyl 1 tablet p.o. twice daily as needed for abdominal pain. cc: Chase Guardado MD
== END 2019-01-21 17:41 | disposition home or self-care (01) | DRG 432 ==
LOC: SUPCPDRO → P.ED 23:14 → P.MEDSURG 01-17 03:21 → SUATTDRO 01-17 03:21 → P.MEDSURG 01-17 03:59 → 3N 01-17 09:33
PROVIDERS: ATTEND Internal Medicine
CPT/HCPCS: 74022; 76700; 80053; 80104; 80301; 80305; 80307; 80320; 82055; 82270; 82272; 82607; 82746; 83735; 84100; 84439; 84443; 85014; 85018; 85025; 85049; 85610; 85730; 86850; 86900; 86901; 96374; 99285; A9270; C9113; G0431; G0434; G0477; G0480; G6040; J0696; J3411; J3475; J7030; S0164